=== PATIENT | male | born 1965 | race African-American/Black ===

== ENCOUNTER 2016-09-09 14:52 | Emergency (ER) | payer MEDICAID ==
[~2016-09-09] VITALS: Ht 185.4 cm; Wt 250.0 kg
[2016-09-09] MEDS ORDERED: CYCLOBENZAPRINE HCL 10 MG TABLET PO ONE (17:15)
[2016-09-09] MEDS ORDERED: KETOROLAC TROMETHAMINE 60 MG/2 ML VIAL IM ONE (17:15)
[2016-09-09 18:01] VITALS: BP 133/77
== END 2016-09-09 18:37 | disposition home or self-care (01) ==
LOC: EMS 14:53
DX: S16.1XXA Strain of muscle, fascia and tendon at neck level, initial encounter (principal); S23.3XXA Sprain of ligaments of thoracic spine, initial encounter; M62.838 Other muscle spasm; X58.XXXA Exposure to other specified factors, initial encounter; Y93.89 Activity, other specified; Y92.89 Other specified places as the place of occurrence of the external cause; Y99.8 Other external cause status
CPT/HCPCS: 96372; 99283; J1885